=== PATIENT | male | born 1980 | race Hispanic/Latino ===

== ENCOUNTER 2021-01-07 14:27 | Emergency (ER) | payer MEDICAID ==
[2021-01-07] MEDS ORDERED: LORazepam 1 MG TAB PO ONE (15:06)
--- NOTE | 2021-01-07 15:17 | Emergency Department Report ---
ED Psych HPI - General Stated Complaint: SUICIDAL THOUGHTS Time Seen by Provider: 01/07/21 14:56 Source: patient Mode of arrival: Ambulatory Limitations: No Limitations - History of Present Illness Initial Comments: Chief complaint:"I am hearing voices telling me to cut myself and blow my brains out." HPI: This is a 40-year-old male with history of bipolar disorder schizophrenia who presents with suicidal ideation command hallucinations paranoia. Patient walked from personal-retirement to the fire station for medical assistance. He has been compliant with medications. He has thoughts of shooting himself or cutting his wrists. He has noticed heart racing. He also has cough. He denies chest pain, denies shortness of breath, denies leg swelling He does smoke tobacco. Denies alcohol or drug use. MD Complaint: suicidal ideation, other (Command auditory hallucinations) -: Gradual, days(s) (Gradual onset several days ago) Associated Psychiatric Symptoms: depression, suicidal ideation, auditory h allucinations History of same: Yes Quality: constant Improves With: none Worsens With: none Associated Symptoms: other (Heart racing cough) If Self Harm: admits thoughts of, has plan - Related Data Home Medications Medication Instructions Recorded Confirmed Last Taken Depakote Dr 11/02/19 Unknown clonazePAM 11/02/19 Unknown Allergies Allergy/AdvReac Type Severity Reaction Status Date / Time Penicillins Allergy Swelling Verified 11/02/19 03:45 ED Review of Systems ROS: Stated complaint: SUICIDAL THOUGHTS Other details as noted in HPI Comment: All other systems reviewed and negative Constitutional: denies: fever Respiratory: cough. denies: shortness of breath Cardiovascular: palpitations. denies: chest pain Gastrointestinal: denies: abdominal pain Neurological: denies: headache Psychiatric: depression, auditory hallucinations, suicidal thoughts ED Past Medical Hx - Past Medical History Previous Medical History?: Yes Hx Psychiatric Treatment: Yes (bi Polar, schizo) - Surgical History Past Surgical History?: No - Family History Family history: other (Unknown family history) - Social History Smoking Status: Current Every Day Smoker Substance Use Type: None - Medications Home Medications: Home Medications Medication Instructions Recorded Confirmed Last Taken Type Depakote Dr 11/02/19 Unknown History clonazePAM 11/02/19 Unknown History ED Physical Exam - General Limitations: No Limitations General appearance: alert, in no apparent distress, other (Calm cooperative good eye contact) - Head Head exam: Present: atraumatic, normocephalic - Eye Eye exam: Present: normal appearance - ENT ENT exam: Present: mucous membranes moist - Neck Neck exam: Present: normal inspection, full ROM - Respiratory Respiratory exam: Present: normal lung sounds bilaterally. Absent: respiratory distress, wheezes, rales, rhonchi - Cardiovascular Cardiovascular Exam: Present: normal rhythm, tachycardia, normal heart sounds. Absent: systolic murmur, diastolic murmur, rubs, gallop - GI/Abdominal GI/Abdominal exam: Present: soft, normal bowel sounds. Absent: distended, tenderness, guarding, rebound - Rectal Rectal exam: Present: deferred - Extremities Exam Extremities exam: Present: normal inspection - Neurological Exam Neurological exam: Present: alert, oriented X3 - Psychiatric Psychiatric exam: Present: depressed, flat affect, suicidal ideation - Skin Skin exam: Present: warm, dry, intact, normal color. Absent: rash ED Course Vital Signs 01/07/21 15:21 Temperature 98.2 F Pulse Rate 129 H Respiratory 20 Rate Blood Pressure 140/85 [Left] O2 Sat by Pulse 96 Oximetry ED Medical Decision Making - Lab Data Result diagrams: 01/07/21 15:27 01/07/21 15:27 Laboratory Results - last 24 hr 01/07/21 01/07/21 01/07/21 15:27 15:27 15:27 WBC 16.1 H RBC 5.32 H Hgb 16.7 H Hct 49.4 H MCV 93 MCH 31 MCHC 34 RDW 13.4 Plt Count 163 Lymph % (Auto) 16.6 [place] % (Auto) 5.1 Eos % (Auto) 0.8 Baso % (Auto) 0.6 Lymph # (Auto) 2.7 [place] # (Auto) 0.8 Eos # (Auto) 0.1 Baso # (Auto) 0.1 Seg Neutrophils % 76.9 H Seg Neutrophils # 12.4 H D-Dimer 135.00 Sodium 140 Potassium 4.6 Chloride 100.6 Carbon Dioxide 27 Anion Gap 17 BUN 13 Creatinine 1.1 Estimated GFR > 60 BUN/Creatinine Ratio 12 Glucose 78 Calcium 10.4 H Total Bilirubin 0.50 AST 37 ALT 22 Alkaline Phosphatase 76 Troponin T < 0.010 NT-Pro-B Natriuret Pep Total Protein 8.0 Albumin 5.0 Albumin/Globulin Ratio 1.7 TSH Urine Color Urine Turbidity Urine pH Ur Specific [place] Urine Protein Urine Glucose (UA) Urine Ketones Urine Blood Urine Nitrite Urine Bilirubin Urine Urobilinogen Ur Leukocyte Esterase Urine WBC (Auto) Urine RBC (Auto) U Epithel Cells (Auto) Urine Mucus Salicylates Urine Opiates Screen Urine Methadone Screen Acetaminophen Ur Barbiturates Screen Ur Phencyclidine Scrn Ur Amphetamines Screen U Benzodiazepines Scrn Urine Cocaine Screen U Marijuana (THC) Screen Drugs of Abuse Note Plasma/Serum Alcohol 01/07/21 01/07/21 01/07/21 15:27 15:27 15:27 WBC RBC Hgb Hct MCV MCH MCHC RDW Plt Count Lymph % (Auto) [place] % (Auto) Eos % (Auto) Baso % (Auto) Lymph # (Auto) [place] # (Auto) Eos # (Auto) Baso # (Auto) Seg Neutrophils % Seg Neutrophils # D-Dimer Sodium Potassium Chloride Carbon Dioxide Anion Gap BUN Creatinine Estimated GFR BUN/Creatinine Ratio Glucose Calcium Total Bilirubin AST ALT Alkaline Phosphatase Troponin T NT-Pro-B Natriuret Pep 23.65 Total Protein Albumin Albumin/Globulin Ratio TSH 1.650 Urine Color Urine Turbidity Urine pH Ur Specific [place] Urine Protein Urine Glucose (UA) Urine Ketones Urine Blood Urine Nitrite Urine Bilirubin Urine Urobilinogen Ur Leukocyte Esterase Urine WBC (Auto) Urine RBC (Auto) U Epithel Cells (Auto) Urine Mucus Salicylates < 0.3 L Urine Opiates Screen Urine Methadone Screen Acetaminophen Ur Barbiturates Screen Ur Phencyclidine Scrn Ur Amphetamines Screen U Benzodiazepines Scrn Urine Cocaine Screen U Marijuana (THC) Screen Drugs of Abuse Note Plasma/Serum Alcohol 01/07/21 01/07/21 01/07/21 15:27 15:27 Unknown WBC RBC Hgb Hct MCV MCH MCHC RDW Plt Count Lymph % (Auto) [place] % (Auto) Eos % (Auto) Baso % (Auto) Lymph # (Auto) [place] # (Auto) Eos # (Auto) Baso # (Auto) Seg Neutrophils % Seg Neutrophils # D-Dimer Sodium Potassium Chloride Carbon Dioxide Anion Gap BUN Creatinine Estimated GFR BUN/Creatinine Ratio Glucose Calcium Total Bilirubin AST ALT Alkaline Phosphatase Troponin T NT-Pro-B Natriuret Pep Total Protein Albumin Albumin/Globulin Ratio TSH Urine Color Yellow Urine Turbidity Clear Urine pH 5.0 Ur Specific [place] 1.018 Urine Protein 30 mg/dl Urine Glucose (UA) Neg Urine Ketones Tr Urine Blood Neg Urine Nitrite Neg Urine Bilirubin Neg Urine Urobilinogen 2.0 Ur Leukocyte Esterase Neg Urine WBC (Auto) 2.0 Urine RBC (Auto) 2.0 U Epithel Cells (Auto) < 1.0 Urine Mucus Few Salicylates Urine Opiates Screen Urine Methadone Screen Acetaminophen 5.0 L Ur Barbiturates Screen Ur Phencyclidine Scrn Ur Amphetamines Screen U Benzodiazepines Scrn Urine Cocaine Screen U Marijuana (THC) Screen Drugs of Abuse Note Plasma/Serum Alcohol < 0.01 01/07/21 Unknown WBC RBC Hgb Hct MCV MCH MCHC RDW Plt Count Lymph % (Auto) [place] % (Auto) Eos % (Auto) Baso % (Auto) Lymph # (Auto) [place] # (Auto) Eos # (Auto) Baso # (Auto) Seg Neutrophils % Seg Neutrophils # D-Dimer Sodium Potassium Chloride Carbon Dioxide Anion Gap BUN Creatinine Estimated GFR BUN/Creatinine Ratio Glucose Calcium Total Bilirubin AST ALT Alkaline Phosphatase Troponin T NT-Pro-B Natriuret Pep Total Protein Albumin Albumin/Globulin Ratio TSH Urine Color Urine Turbidity Urine pH Ur Specific [place] Urine Protein Urine Glucose (UA) Urine Ketones Urine Blood Urine Nitrite Urine Bilirubin Urine Urobilinogen Ur Leukocyte Esterase Urine WBC (Auto) Urine RBC (Auto) U Epithel Cells (Auto) Urine Mucus Salicylates Urine Opiates Screen Presumptive negative Urine Methadone Screen Presumptive negative Acetaminophen Ur Barbiturates Screen Presumptive negative Ur Phencyclidine Scrn Presumptive negative Ur Amphetamines Screen Presumptive negative U Benzodiazepines Scrn Presumptive negative Urine Cocaine Screen Presumptive negative U Marijuana (THC) Screen Presumptive negative Drugs of Abuse Note Disclamer Plasma/Serum Alcohol - EKG Data -: EKG Interpreted by Ok EKG shows normal: sinus rhythm, axis, intervals, QRS complexes, ST-T waves Rate: tachycardia - EKG Data 01/07/21 15:17 EKG obtained 1314 EKG interpreted by me Sinus tachycardia rate 125 bpm normal axis normal intervals no ST-T sign ischemia - Radiology Data Radiology results: report reviewed Patient Name: KIMBERLEE CID Gender: Male Date of : 1980 Referring Provider: ARUNA HUNT Organization: [facility] Accession Number: [id number] Requested Date: January 07, 2021 15:05 Report Status: Final Requested Procedure: 1 Procedure Description: XR chest routine 2V Modality: XR Findings Reporting MD: Eder Dickey Dictation Time: January 07, 2021 14:52 Sr. Media Manager: Not available Herpetology Teacher Date: XR chest routine 2V INDICATION / CLINICAL INFORMATION: rapid heart rate COMPARISON: None available. FINDINGS: SUPPORT DEVICES: None. HEART / MEDIASTINUM: No significant abnormality. LUNGS / PLEURA: Lungs are clear. Costophrenic sulci are sharp. No pneumothorax. ADDITIONAL FINDINGS: No significant additional findings. IMPRESSION: 1. No acute findings. Signer Name: Eder Dickey MD Signed: 01/07/2021 2:52 PM Workstation Name: [id number] - Medical Decision Making 1. Suicidal ideation with plans to cut and shoot himself, 1013 form completed. ED hold order in place. Mild leukocytosis attributed to antipsychotic medication. No evidence of infection or bacteremia. Patient appears well nontoxic. Patient is medically clear for psychiatric care 2. Tachycardia: Sinus tachycardia no arrhythmia, D-dimer obtained to rule out PE, TSH obtained to rule out thyroid disease. UDS negative. Patient had tachycardia on previous ED encounter in 2019. Tachycardia attributed to cold exposure, anxiety and mild dehydration. Will treat with oral hydration a nxiolytic and regular diet. No anemia chemistry within normal limits troponin with normal limits BMP with normal TSH D-dimer all within normal limits. Urinalysis chest radiograph absence of infection. Patient is medically clear for psychiatric care. Critical care attestation.: If time is entered above; I have spent that time in minutes in the direct care of this critically ill patient, excluding procedure time. ED Disposition Clinical Impression: Acute psychosis, Suicidal ideation, Bipolar disorder, Schizophrenia Disposition: [address] [place] [address] Is pt being admited?: No Does the pt Need Aspirin: No Condition: Stable Referrals: PRIMARY CARE, [Primary Care Provider] - 3-5 Days
[2021-01-07 15:30] LABS: Amphetamine Screen,Urine PRESUMPTIVE NEGATIVE; Benzodiazepines Screen,Urine PRESUMPTIVE NEGATIVE; Cannabinoid Screen,Urine PRESUMPTIVE NEGATIVE; Cocaine Screen,Urine PRESUMPTIVE NEGATIVE; Methadone Screen,Urine PRESUMPTIVE NEGATIVE; Opiate Screen,Urine PRESUMPTIVE NEGATIVE
[2021-01-07 15:35] LABS: Bilirubin,Urine NEG (Negative); Blood,Urine NEG (Negative); Color,Urine Yellow (Yellow); Mucus,Urine FEW /HPF
--- NOTE | 2021-01-07 15:56 | XRay Report ---
XR chest routine 2V INDICATION / CLINICAL INFORMATION: rapid heart rate COMPARISON: None available. FINDINGS: SUPPORT DEVICES: None. HEART / MEDIASTINUM: No significant abnormality. LUNGS / PLEURA: Lungs are clear. Costophrenic sulci are sharp. No pneumothorax. ADDITIONAL FINDINGS: No significant additional findings. IMPRESSION: 1. No acute findings. Signer Name: Eder Dickey MD Signed: 01/07/2021 3:52 PM Workstation Name: [id number]
[2021-01-07 16:15] LABS: Basophils # (Auto) 0.1 K/mm3 (0.0-0.1); Basophils % (Auto) 0.6 % (0.0-1.8); Eosinophils # (Auto) 0.1 K/mm3 (0.0-0.4); Eosinophils % (Auto) 0.8 % (0.0-4.3); Hematocrit 49.4 % (35.5-45.6); Hemoglobin 16.7 gm/dl (11.8-15.2); Lymphocytes # (Auto) 2.7 K/mm3 (1.2-5.4); Lymphocytes % (Auto) 16.6 % (13.4-35.0); Mean Corpuscular HGB Conc 34 % (32-34); Mean Corpuscular Volume 93 fl (84-94); Monocytes # (Auto) 0.8 K/mm3 (0.0-0.8); Monocytes % (Auto) 5.1 % (0.0-7.3); Platelet Count 163 K/mm3 (140-440); Red Blood Count 5.32 M/mm3 (3.65-5.03); Red Cell Distribution Width 13.4 % (13.2-15.2)
[2021-01-07 16:17] LABS: Alanine Aminotransferase 22 units/L (7-56); BUN/Creatinine Ratio 12; Blood Urea Nitrogen 13 mg/dL (9-20); Calcium 10.4 mg/dL (8.4-10.2); Hemolysis Index 8
[2021-01-08 08:17] VITALS: BP 120/77
--- NOTE | 2021-01-08 10:00 | Event Note ---
Date: 01/08/21 This patient came in yesterday for a mental health evaluation. He is having command hallucinations causing suicidal ideations and paranoia. For this reason the patient was made a 1013 and placed on an ED hold. He was seen by the psychiatric health insurance assessor who agrees with the need for inpatient stabilization. I spoke to the emergency department psychiatric nurse, Abeba, who does not report any events from overnight, nor anything thus far this morning. His labs have been reviewed and are mostly unremarkable. There is a mild leukocytosis of 16,000. However no source of infection is seen in the urine or on the chest x- ray, which is negative. Vital signs reassuring over the past 24 hours including being afebrile. The patient initially presented with some tachycardia but this was secondary to agitation and resolved with 1 dose of Ativan. He has not yet required any further sedation. His medications will need to be updated for reconciliation. We will continue to monitor this patient during his ED course. Vital Signs - 24 hr 01/07/21 01/07/21 01/08/21 15:21 19:45 02:00 Temperature 98.2 F 97.8 F 97.6 F Pulse Rate 129 H 95 H 95 H Respiratory 20 18 18 Rate Blood Pressure 140/85 115/72 105/66 [Left] O2 Sat by Pulse 96 93 95 Oximetry 01/08/21 08:15 Temperature 98 F Pulse Rate 90 Respiratory 20 Rate Blood Pressure 120/77 [Left] O2 Sat by Pulse 96 Oximetry
--- NOTE | 2021-01-08 10:43 | Consultation ---
History of Present Illness - Reason for Consult Consult date: 01/08/21 Reason for consult: SI - History of Present Psychiatric Illness Per ER Note: Chief complaint:"I am hearing voices telling me to cut myself and blow my brains out." HPI: This is a 40-year-old male with history of bipolar disorder schizophrenia who presents with suicidal ideation command hallucinations paranoia. Patient walked from personal-long term to the fire station for medical assistance. He has been compliant with medications. He has thoughts of shooting himself or cutting his wrists. Clem Phillips is a 40y/o male patient who was seen today. He is a/o x 3. The patient is calm and cooperative. He says he's feeling suicidal due to his living conditions. The patient states he's currently at a residential. He says he is depressed and hearing voices telling him to kill himself. He says he has a plan to shoot himself. PAST PSYCHIATRIC HISTORY Diagnoses: Schizophrenia, bipolar Suicide attempts or Self-harm behavior: "several" Prior psychiatric hospitalizations: yes Substance Abuse history: Denies Previous psychiatric medications tried: Clozaril, ambien, depakote, trazodone Outpatient treatment: Yes PAST MEDICAL HISTORY: None reported Family Psychiatric History: Mother " unknown" SOCIAL HISTORY Marital Status: Single Living Arrangements: residential Employment Status: Disabled Access to guns/weapons: None reported Education: History of Abuse: None reported Legal History: None reported REVIEW OF SYSTEMS Constitutional: Negative for weight loss ENT: Negative for stridor Respiratory: Negative for cough or hemoptysis All other systems reviewed and are negative MENTAL STATUS EXAMINATION General Appearance and Behavior: Age appropriate, good hygiene, wearing appropriate clothes, fair eye contact, calm, and cooperative Cooperation: uncooperative, guarded Mood: Depressed Affect and affective range: congruent with mood Thought Process: Goal directed Thought Content: Suicidal Speech: normal tone and pace Suicidal Ideation: Yes Homicidal Ideation: Denies Hallucinations: Auditory Delusions: Denies Impulse Control: Impaired Insight and Judgment: Limited insight and poor judgment, Memory: Normal Attention: Normal Orientation: Alert, oriented Assessment Bipolar Treatment 1013 Risperidone 1mg po BID Depakote DR 125mg po BID Trazodone 50mg po qhs sitter: per primary Medical: per primary Dispositon: Recommend acute psychiatric inpatient treatment will follow. Thanks Case staffed with Dr. Hurtado Medications and Allergies Allergies Allergy/AdvReac Type Severity Reaction Status Date / Time Penicillins Allergy Swelling Verified 11/02/19 03:45 Home Medications Medication Instructions Recorded Confirmed Last Taken Type Lucianate 11/02/19 Unknown History clonazePAM 11/02/19 Unknown History Mental Status Exam - Vital signs Last Vital Signs Temp 98 F 01/08/21 08:15 Pulse 90 01/08/21 08:15 Resp 20 01/08/21 08:15 BP 120/77 01/08/21 08:15 Pulse Ox 96 01/08/21 08:15 Results Result Diagrams: 01/07/21 15:27 01/07/21 15:27 Abnormal lab results 01/07/21 01/07/21 01/07/21 Range/Units 15:27 15:27 15:27 WBC 16.1 H (4.5-11.0) K/mm3 RBC 5.32 H (3.65-5.03) M/mm3 Hgb 16.7 H (11.8-15.2) gm/dl Hct 49.4 H (35.5-45.6) % Seg Neutrophils % 76.9 H (40.0-70.0) % Seg Neutrophils # 12.4 H (1.8-7.7) K/mm3 Calcium 10.4 H (8.4-10.2) mg/dL Salicylates < 0.3 L (2.8-20.0) mg/dL Acetaminophen (10.0-30.0) ug/mL 01/07/21 Range/Units 15:27 WBC (4.5-11.0) K/mm3 RBC (3.65-5.03) M/mm3 Hgb (11.8-15.2) gm/dl Hct (35.5-45.6) % Seg Neutrophils % (40.0-70.0) % Seg Neutrophils # (1.8-7.7) K/mm3 Calcium (8.4-10.2) mg/dL Salicylates (2.8-20.0) mg/dL Acetaminophen 5.0 L (10.0-30.0) ug/mL All other labs normal.
[2021-01-08] MEDS ORDERED: DIVALPROEX DR 125 MG TAB PO SCH (12:00)
[2021-01-08] MEDS ORDERED: risperiDONE 1 MG TAB PO SCH (12:00)
--- NOTE | 2021-01-08 13:20 | Electrocardiograph Report ---
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
[2021-01-08] MEDS ORDERED: traZODone 50 MG TAB PO SCH (22:00)
== END 2021-01-08 18:11 ==
LOC: ED 14:27
DX: F23 Brief psychotic disorder (principal); R45.851 Suicidal ideations; F31.9 Bipolar disorder, unspecified; F17.200 Nicotine dependence, unspecified, uncomplicated; Z88.0 Allergy status to penicillin; Z20.822 Contact with and (suspected) exposure to COVID-19
CPT/HCPCS: 36415; 71046; 80053; 80307; 81001; 83880; 84443; 84484; 85025; 85379; 93005; 99285; U0003; 80320; G0480

== ENCOUNTER 2021-11-10 15:12 | Emergency (ER) | payer MEDICAID ==
--- NOTE | 2021-11-10 16:02 | Emergency Department Report ---
ED Psych HPI - General Chief Complaint: Psych Stated Complaint: PSYCH Time Seen by Provider: 11/10/21 15:43 Source: patient, EMS Mode of arrival: Stretcher - History of Present Illness Initial Comments: Patient is 41 years old male with history of schizophrenia. Patient presented to the ER for mental health evaluation. Patient stated that he is hearing voices asking him to kill himself by drug overdose. Patient denied any homicidal ideation. No visual hallucination. MD Complaint: suicidal ideation -: days(s) Associated Psychiatric Symptoms: suicidal ideation, auditory hallucinations Worsens With: none If Self Harm: admits thoughts of, has plan, intentional overdose - Related Data Home Medications Medication Instructions Recorded Confirmed Last Taken Depakote Dr 11/02/19 Unknown clonazePAM 11/02/19 Unknown Allergies Allergy/AdvReac Type Severity Reaction Status Date / Time Penicillins Allergy Swelling Verified 11/02/19 03:45 ED Review of Systems ROS: Stated complaint: PSYCH Other details as noted in HPI Comment: All other systems reviewed and negative Constitutional: denies: chills, fever Respiratory: denies: shortness of breath, SOB with exertion, SOB at rest Cardiovascular: denies: chest pain Gastrointestinal: denies: abdominal pain, nausea, vomiting, diarrhea, constipation, hematemesis, melena Neurological: denies: headache, weakness, numbness, paresthesias, confusion, abnormal gait Psychiatric: auditory hallucinations, suicidal thoughts. denies: anxiety, depression, visual hallucinations, homicidal thoughts ED Past Medical Hx - Past Medical History Hx Psychiatric Treatment: Yes (bi Polar, schizo) - Surgical History Past Surgical History?: No - Social History Smoking Status: Current Every Day Smoker Substance Use Type: Alcohol - Medications Home Medications: Home Medications Medication Instructions Recorded Confirmed Last Taken Type Depakote Dr 11/02/19 Unknown History clonazePAM 11/02/19 Unknown History ED Physical Exam - General Limitations: No Limitations General appearance: alert, in no apparent distress - Head Head exam: Present: atraumatic, normocephalic, normal inspection - Eye Eye exam: Present: normal appearance - ENT ENT exam: Present: normal exam, normal orophraynx, mucous membranes moist - Neck Neck exam: Present: normal inspection, full ROM. Absent: tenderness, meningismus - Respiratory Respiratory exam: Present: normal lung sounds bilaterally - Cardiovascular Cardiovascular Exam: Present: regular rate, normal rhythm, normal heart sounds - GI/Abdominal GI/Abdominal exam: Present: soft, normal bowel sounds. Absent: distended, tenderness, guarding, rebound, rigid, organomegaly, mass, bruit, pulsatile mass, hernia - Extremities Exam Extremities exam: Present: normal inspection, full ROM, normal capillary refill. Absent: tenderness, pedal edema, joint swelling, calf tenderness - Back Exam Back exam: Present: normal inspection, full ROM. Absent: CVA tenderness (R), CVA tenderness (L) - Neurological Exam Neurological exam: Present: alert, oriented X3, CN II-XII intact, normal gait, reflexes normal. Absent: motor sensory deficit - Psychiatric Psychiatric exam: Present: flat affect, suicidal ideation. Absent: agitated, homicidal ideation - Skin Skin exam: Present: warm, intact, normal color ED Course Vital Signs 11/10/21 11/10/21 11/11/21 15:21 20:21 08:57 Temperature 98.4 F Pulse Rate 125 H 90 Respiratory 22 16 Rate Blood Pressure 122/86 Blood Pressure 96/60 [Left] O2 Sat by Pulse 96 96 99 Oximetry 11/11/21 13:31 Temperature 98.6 F Pulse Rate 90 Respiratory 20 Rate Blood Pressure Blood Pressure 105/65 [Left] O2 Sat by Pulse 97 Oximetry ED Medical Decision Making - Lab Data Result diagrams: 11/10/21 15:59 11/10/21 15:59 Critical care attestation.: If time is entered above; I have spent that time in minutes in the direct care of this critically ill patient, excluding procedure time. ED Disposition Clinical Impression: Suicidal ideation Disposition: [address] [place] [address] Is pt being admited?: No Condition: Stable
[2021-11-10 16:26] LABS: Basophils # (Auto) 0.1 K/mm3 (0.0-0.1); Basophils % (Auto) 0.9 % (0.0-1.8); Eosinophils # (Auto) 0.2 K/mm3 (0.0-0.4); Eosinophils % (Auto) 1.5 % (0.0-4.3); Hematocrit 44.2 % (35.5-45.6); Hemoglobin 15.1 gm/dl (11.8-15.2); Lymphocytes # (Auto) 2.6 K/mm3 (1.2-5.4); Lymphocytes % (Auto) 23.3 % (13.4-35.0); Mean Corpuscular HGB Conc 34 % (32-34); Mean Corpuscular Volume 89 fl (84-94); Monocytes # (Auto) 0.6 K/mm3 (0.0-0.8); Platelet Count 158 K/mm3 (140-440); Red Blood Count 4.95 M/mm3 (3.65-5.03); Red Cell Distribution Width 13.8 % (13.2-15.2)
[2021-11-10 16:54] LABS: BUN/Creatinine Ratio 15; Blood Urea Nitrogen 17 mg/dL (9-20); Hemolysis Index 16
[2021-11-11 09:34] LABS: Amphetamine Screen,Urine Negative; Benzodiazepines Screen,Urine Negative; Cannabinoid Screen,Urine Negative; Cocaine Screen,Urine Negative; Methadone Screen,Urine Negative; Opiate Screen,Urine Negative
[2021-11-11 09:35] LABS: Mucus,Urine 2+ /HPF
[2021-11-11 09:48] LABS: Bilirubin,Urine Negative (Negative); Blood,Urine Negative (Negative); Color,Urine Yellow (Yellow); Protein,Urine <15 mg/dL mg/dL (Negative); Urobilinogen,Urine < 2.0 mg/dL (<2.0)
--- NOTE | 2021-11-11 10:54 | Consultation ---
History of Present Illness - Reason for Consult Consult date: 11/11/21 Reason for consult: SI - History of Present Psychiatric Illness HPI: Patient is 41 years old male with history of schizophrenia. Patient presented to the ER for mental health evaluation. Patient stated that he is hearing voices asking him to kill himself by drug overdose. Patient denied any homicidal ideation. No visual hallucination. The patient was seen today. He has a history of schizophrenia and bipolar. He says he is suicidal and has a plan to OD. He says he's hearing voices telling him to kill himself. The patient says he's on clozaril and abilify. He says he's been compliant. The patient says he is depressed. He denies any illicit drug use, or alcohol. He says he smokes a pack of cigarets daily. PAST PSYCHIATRIC HISTORY Diagnoses: Schizophrenia, bipolar Suicide attempts or Self-harm behavior: "several" Prior psychiatric hospitalizations: yes Substance Abuse history: Denies Previous psychiatric medications tried: Clozaril, ambien, depakote, trazodone Outpatient treatment: Yes PAST MEDICAL HISTORY: None reported Family Psychiatric History: Mother " unknown" SOCIAL HISTORY Marital Status: Single Living Arrangements: retirement Employment Status: Disabled Access to guns/weapons: Denies Education: History of Abuse: None reported Legal History: None reported REVIEW OF SYSTEMS Constitutional: Negative for weight loss ENT: Negative for stridor Respiratory: Negative for cough or hemoptysis All other systems reviewed and are negative MENTAL STATUS EXAMINATION General Appearance and Behavior: Age appropriate, good hygiene, wearing appropriate clothes, fair eye contact, calm, and cooperative Cooperation: uncooperative, guarded Mood: Depressed Affect and affective range: congruent with mood Thought Process: Goal directed Thought Content: Suicidal Speech: normal tone and pace Suicidal Ideation: Yes Homicidal Ideation: Denies Hallucinations: Auditory Delusions: Denies Impulse Control: Impaired Insight and Judgment: Limited insight and poor judgment, Memory: Normal Attention: Normal Orientation: Alert, oriented Assessment Schizophrenia Treatment 1013 Abilify 10mg po daily Depakote DR 125mg po BID Doxepin 10m po qhs Nicotine 21mg patch daily sitter: per primary Medical: per primary Disposition: Recommend acute psychiatric inpatient treatment will follow. Thanks Case staffed with Dr. Hurtado Medications and Allergies Allergies Allergy/AdvReac Type Severity Reaction Status Date / Time Penicillins Allergy Swelling Verified 11/02/19 03:45 Home Medications Medication Instructions Recorded Confirmed Last Taken Type Nancy Hollins 11/02/19 Unknown History clonazePAM 11/02/19 Unknown History Mental Status Exam - Vital signs Last Vital Signs Temp 98.4 F 11/10/21 15:21 Pulse 90 11/10/21 20:21 Resp 16 11/10/21 20:21 BP 96/60 11/10/21 20:21 Pulse Ox 99 11/11/21 08:57 Results Result Diagrams: 11/10/21 15:59 11/10/21 15:59 Abnormal lab results 11/10/21 11/10/21 11/10/21 Range/Units 15:59 15:59 15:59 WBC 11.3 H (4.5-11.0) K/mm3 Seg Neutrophils # 7.8 H (1.8-7.7) K/mm3 Glucose 102 H (75-100) mg/dL Salicylates < 0.3 L (2.8-20.0) mg/dL Acetaminophen (10.0-30.0) ug/mL 11/10/21 Range/Units 15:59 WBC (4.5-11.0) K/mm3 Seg Neutrophils # (1.8-7.7) K/mm3 Glucose (75-100) mg/dL Salicylates (2.8-20.0) mg/dL Acetaminophen 5.0 L (10.0-30.0) ug/mL All other labs normal.
[2021-11-11] MEDS: DIVALPROEX DR 125 MG TAB PO SCH ×2 (11:33→22:24)
[2021-11-11] MEDS: ARIPiprazole 10 MG TAB PO SCH (11:33)
[2021-11-11] MEDS: NICOTINE 21 MG/24 HR PATCH TD SCH (11:33)
--- NOTE | 2021-11-11 13:53 | Emergency Department Report ---
Blank Doc - Documentation Documentation: S: Patient still suicidal. No events overnight O: Vital Signs - 8 hr 11/11/21 11/11/21 08:57 13:31 Temperature 98.6 F Pulse Rate 90 Respiratory 20 Rate Blood Pressure 105/65 [Left] O2 Sat by Pulse 99 97 Oximetry E: Schizophrenia P: 1013/awaiting inpatient psych
[2021-11-11] MEDS ORDERED: DOXEPIN 10 MG CAP PO SCH (22:00)
[2021-11-12] MEDS: ARIPiprazole 10 MG TAB PO SCH (10:28)
[2021-11-12] MEDS: DIVALPROEX DR 125 MG TAB PO SCH (10:29)
[2021-11-12] MEDS: NICOTINE 21 MG/24 HR PATCH TD SCH (10:29)
--- NOTE | 2021-11-12 12:09 | Emergency Department Report ---
Blank Doc - Documentation Documentation: S: No events reported overnight O: Vital Signs - 8 hr 11/12/21 11/12/21 12:22 12:23 Temperature 98.1 F Pulse Rate 81 Respiratory 19 Rate Blood Pressure 104/72 [Left] O2 Sat by Pulse 97 97 Oximetry A: Schizophrenia P: 1013/awaiting inpatient
[2021-11-12 12:22] VITALS: BP 104/72
--- NOTE | 2021-11-12 12:26 | Progress Note ---
Subjective - Reason for Consult Consult date: 11/12/21 Reason for consult: SI - Chief Complaint Chief complaint: The patient was seen today. He says he's doing better. The patient says "I got some sleep." He denies SI/HI or hallucinations. The patient says he feels stable and can go home. Will no longer recommend inpatient psych treatment. The patient can be managed on outpatient basis. REVIEW OF SYSTEMS Constitutional: Negative for weight loss ENT: Negative for stridor Respiratory: Negative for cough or hemoptysis All other systems reviewed and are negative MENTAL STATUS EXAMINATION General Appearance and Behavior: Age appropriate, good hygiene, wearing appropriate clothes, fair eye contact, calm, and cooperative Cooperation: uncooperative, guarded Mood: better Affect and affective range: congruent with mood Thought Process: Goal directed Thought Content: None Speech: normal tone and pace Suicidal Ideation: Denies Homicidal Ideation: Denies Hallucinations: Denies Delusions: None elicited Impulse Control: Impaired Insight and Judgment: Limited insight and poor judgment, Memory: Normal Attention: Normal Orientation: Alert, oriented Assessment Schizophrenia Treatment d/c 1013 Abilify 10mg po daily Depakote DR 125mg po BID Doxepin 10m po qhs Nicotine 21mg patch daily sitter: per primary Medical: per primary Disposition: Do not recommend acute psychiatric inpatient treatment. The patient understands that if SI/HI arise, the patient should seek immediate assistance. The admission liaison to further discuss safety plan and give the patient all necessary resources The patient to follow up with outpatient psych in 7 to 14 days will sign off. Thanks Case staffed with Dr. Hurtado Mental Status Exam - Vital signs Last Vital Signs Temp 98.1 F 11/12/21 12:22 Pulse 81 11/12/21 12:22 Resp 19 11/12/21 12:22 BP 104/72 11/12/21 12:22 Pulse Ox 97 11/12/21 12:22
== END 2021-11-12 17:44 | disposition home or self-care (01) ==
LOC: EEVIPCON 15:12 → ED 15:12
DX: R45.851 Suicidal ideations (principal); F32.9 Major depressive disorder, single episode, unspecified; Z20.822 Contact with and (suspected) exposure to COVID-19; F20.9 Schizophrenia, unspecified; F17.290 Nicotine dependence, other tobacco product, uncomplicated; Z88.0 Allergy status to penicillin
CPT/HCPCS: 36415; 80048; 80307; 81001; 85025; 99284; U0003; 80320; G0480